=== PATIENT | female | born 1980 | race Caucasian/White ===

== ENCOUNTER 2017-05-21 14:33 | Outpatient (CLI) | payer OTHER ==
--- NOTE | 2017-05-21 14:51 | DIAGNOSTIC IMAGING REPORT ---
PROCEDURE: XR SHOULDER 2 OR MORE VW-RIGHT INDICATION: PAIN IN RT SHOULDER TECHNIQUE: Three views. COMPARISON: None. FINDINGS: Osseous structures and joint spaces are normal. IMPRESSION: 1. Normal right shoulder.
== END 2017-05-21 23:00 | disposition home or self-care (01) ==
LOC: XR SRH 14:33
DX: M25.511 Pain in right shoulder (principal)